=== PATIENT | female | born 1985 | race African-American/Black ===

== ENCOUNTER 2017-10-09 10:04 | Day surgery (SDC) | payer MEDICAID ==
[2017-10-09] MEDS ORDERED: LACTATED RINGERS 2,000 ML ONE (10:46)
--- NOTE | 2017-10-09 10:47 | Operative Report ---
Operative Report Operative Report: Pre-operative Diagnosis: 1. IUP at 23 weeks 4 days 2. short cervix 3. previous labor/delivery Post-operative Diagnosis: same Procedure Performed: Lopez cerclage Surgeon: Ariadna Acevedo MD Anesthesia: spinal Procedure Details: After placement of spinal anesthesia, the patient was draped and prepped in the usual sterile manner. Her legs were placed in stirrups. Her bladder was drained with a red rubber catheter. A weighted speculum was placed in the vagina and a right angle retractor placed anteriorly to visualize the cervix. Her cervix was grasped with ring forceps, and a circumferential suture was placed with 1- Prolene at the cervico-vaginal junction. The needle entry and exit points were at 12:00, 3:00, 6:00 and 9:00. The suture was then tied at the 12:00 position, and the ends cut long to aid in future identification and removal. Findings: cervix appeared short but closed. Estimated Blood Loss: minimal Complications: none Disposition: stable to PACU
--- NOTE | 2017-10-09 11:02 | Anesthesia Consultation ---
Anesthesia Consult and Med Hx Date of service: 10/09/17 - Airway Anesthetic Teeth Evaluation: Good ROM Head & Neck: Adequate Mental/Hyoid Distance: Adequate Mallampati Class: Class II Intubation Access Assessment: Probably Good - Pre-Operative Health Status ASA Pre-Surgery Classification: ASA2 Proposed Anesthetic Plan: Spinal - Pulmonary Hx Asthma: No - Central Nervous System Hx Seizures: No Hx Psychiatric Problems: No - Endocrine Hx Renal Disease: No Hx Hypothyroidism: No Hx Hyperthyroidism: No - Hematic Hx Anemia: No Hx Sickle Cell Disease: No - Other Systems Hx Alcohol Use: No
--- NOTE | 2017-10-09 11:04 | Anesthesia Day of Surgery ---
Anesthesia Day of Surgery - Day of Surgery Patient Examined: Yes Patient H&P Reviewed: Yes Patient is NPO: Yes
[2017-10-09] MEDS ORDERED: REGLAN IV NR (11:27)
[2017-10-09] MEDS ORDERED: PEPCID IV NR (11:30)
[2017-10-09 11:44] LABS: Hematocrit 38.5 % (30.3-42.9); Hemoglobin 12.8 gm/dl (10.1-14.3); Mean Corpuscular HGB Conc 33 % (30-34); Mean Corpuscular Hemoglobin 30 pg (28-32); Mean Corpuscular Volume 90 fl (79-97); Platelet Count 287 K/mm3 (140-440); Red Blood Count 4.31 M/mm3 (3.65-5.03); Red Cell Distribution Width 15.1 % (13.2-15.2)
[2017-10-09] MEDS ORDERED: ANCEF/STERILE WATER 2 GM/20 ML IV NR (12:00)
[2017-10-09] MEDS ORDERED: BICITRA PO NR (12:00)
[2017-10-09 16:11] VITALS: BP 97/54
[2017-10-10] MEDS ORDERED: Fluarix Quad 2017-2018(36 MOS+ IM ONE (12:00)
== END 2017-10-09 17:10 | disposition home or self-care (01) ==
LOC: LDOR 10:04 → LD 10:05 → LDOR 17:10
PROVIDERS: ATTEND Obstetrics & Gynecology Maternal & Fetal Medicine
DX: N88.8 Other specified noninflammatory disorders of cervix uteri (principal)
CPT/HCPCS: 36415; 58558; 85027; 86850; 86900; 86901; J2765; J7120; J0690

== ENCOUNTER 2018-01-10 15:04 | Inpatient (IN) | payer MEDICAID, OTHER ==
[2018-01-10] MEDS ORDERED: XYLOCAINE 2% INFILTRATI ONE ×3 (15:44→21:02)
[2018-01-10] MEDS ORDERED: ZOFRAN IV PRN (15:44)
[2018-01-10] MEDS ORDERED: ePHEDrine SULFATE IV PRN ×2 (15:44→21:31)
[2018-01-10] MEDS ORDERED: BRETHINE SUB-Q PRN (15:44)
[2018-01-10] MEDS ORDERED: LACTATED RINGERS 1,000 ML IV SCH (16:00)
[2018-01-10] MEDS ORDERED: BRETHINE IVP PRN (16:00)
[2018-01-10] MEDS ORDERED: PITOCin/NS 20 UNIT/1000ML DRIP 20 UNITS/1,000 ML BAG IV SCH (16:00)
[2018-01-10] MEDS ORDERED: CELESTONE SOLUSPAN IM SCH (16:00)
[2018-01-10 16:21] LABS: Hematocrit 43.9 % (30.3-42.9); Hemoglobin 14.5 gm/dl (10.1-14.3); Mean Corpuscular HGB Conc 33 % (30-34); Mean Corpuscular Hemoglobin 30 pg (28-32); Mean Corpuscular Volume 92 fl (79-97); Platelet Count 239 K/mm3 (140-440); Red Blood Count 4.78 M/mm3 (3.65-5.03); Red Cell Distribution Width 14.3 % (13.2-15.2)
[2018-01-10] MEDS: SUBLIMAZE IV PRN ×2 (17:07→19:33)
--- NOTE | 2018-01-10 17:25 | History and Physical Report ---
History of Present Illness Date of examination: 01/10/18 (pt sent from office 5cm after removal of cerclage ) Date of admission: 01/10/18 15:04 History of present illness: Pt seen in our office. Cerclage removed by . Pt noted to be 5,100,-1 with BBOW. Sent to L&D for expectant mgt of labor. @ 36.6 weeks EDC Confirmation: 02/01/2018 Gestational Age: 9 3/7 weeks Past History : 2 Premature Births: 1 Living Children: 0 Para: 1 # 1 Delivery date: 11/29/2016 Weeks Gestation: 24 labor: yes Delivery type: Delivery location: home Infant Sex: Female weight: less 1 lb Comments: PTL (prob not incompetent cx) del at 24 wk at and after 12d, weighed less than 1# Past Medical History: Negative Past Medical History born in [place], came to [facility] age 27 Past Surgical History: negative Past Medical History Anesthesia Complications: negative Anemia: negative Autoimmune Disorder: negative Bleeding Disorder: negative Blood Transfusions: negative Breast Disease: negative Diabetes: negative Heart Disease: negative Hypertension: negative Hepatitis/Liver Disease: negative Kidney Disease/UTI: negative Neurologic/Epilepsy/Migraines: negative Phlebitis/Varicosities: negative Psychiatric: negative Pulmonary Disease/Asthma: negative Thyroid Disease: negative Hospitalizations: negative Surgery (Non-inpatient auditor): negative Abnormal PAP: negative FABRICE Exposure: negative Infertility: negative Uterine Anomaly: negative Uterine Surgery (not C/S): negative Other Gynecologic Problems: positive, early 2nd tri delivery Infection History Hx of STD: none HIV Risk Eval: low risk Hepatitis B Risk Eval: low risk Personal hx. of genital herpes: no Partner hx. of genital herpes: no Rash, Viral, or Febrile illness since last LMP? no Varicella/Chicken Pox Status: Previous Disease TB Risk: no Genetic History Congenital Heart Defect: Mom: no Dad: no Kina Disease: Mom: no Dad: no Thalassemia Mom: no Dad: no Neural Tube Defect Mom: no Dad: no Down's Syndrome Mom: no Dad: no Aki-Sachs Mom: no Dad: no Sickle Cell Disease/Trait Mom: no Dad: no Hemophilia Mom: no Dad: no Muscular Dystrophy Mom: no Dad: no Cystic Fibrosis Mom: no Dad: no Hasty Chorea Mom: no Dad: no Mental Retardation Mom: no Dad: no Fragile X Mom: no Dad: no Other Genetic/Chromosomal Disorder Mom: no Dad: no Child w/other defect Mom: no Dad: no Past History - Obstetrical History Expected Date of Delivery: 02/01/18 Actual Gestation: 37 Week(s) 0 Day(s) : 2 Para: 1 (born @ 24w lived just a few days) Number of Pregnancies: 1 Number of Living Children: 0 Medications and Allergies Allergies Allergy/AdvReac Type Severity Reaction Status Date / Time No Known Allergies Allergy Unverified 10/09/17 10:50 Home Medications Medication Instructions Recorded Confirmed Last Taken Type Plus Tablet 1 tab PO QDAY 10/09/17 01/10/18 01/09/18 History 1 Ibuprofen 800 mg PO Q6HR #30 tablet 01/11/18 Unknown Rx Lidocain2.5%/Prilocai2.5% [Emla] 2 gm TP ONCE #1 tube 01/11/18 Unknown Rx Active Meds: Active Medications Ephedrine Sulfate (Ephedrine Sulfate) 10 mg IV Q2M PRN PRN Reason: Hypotension Fentanyl (Sublimaze) 100 mcg IV Q2H PRN PRN Reason: Labor Pain Last Admin: 01/10/18 17:07 Dose: 100 mcg Lactated Ringer's (Lactated Ringers) 1,000 mls @ 125 mls/hr IV DIRECT PAVAN Oxytocin/Sodium Chloride (Pitocin/Ns 20 Unit/1000ml Drip) 20 units in 1,000 mls @ 125 mls/hr IV DIRECT PAVAN Ondansetron HCl (Zofran) 4 mg IV Q8H PRN PRN Reason: Nausea And Vomiting Terbutaline Sulfate (Brethine) 0.25 mg SUB-Q ONCE PRN PRN Reason: Hyperstimulation/Hypertonicity Terbutaline Sulfate (Brethine) 0.25 mg IVP ONCE PRN PRN Reason: Hyperstimulation/Hypertonicity - Vital Signs Vital signs: Vital Signs Pulse BP 97 H 117/70 01/10/18 15:42 01/10/18 15:42 Temp Pulse Resp BP Pulse Ox 98.1 F 96 H 18 112/70 95 01/10/18 15:44 01/10/18 17:18 01/10/18 17:07 01/10/18 17:18 01/10/18 16:37 - Physical Exam Breasts: Positive: deferred Cardiovascular: Regular rate, Normal S1, Normal S2 Lungs: Positive: Clear to auscultation, Normal air movement Abdomen: Positive: normal appearance, soft, normal bowel sounds. Negative: distention, tenderness Genitourinary (Female): Positive: normal external genitalia, normal perenium Vulva: both: normal Vagina: Positive: normal moisture. Negative: discharge Cervix: Negative: lesion, discharge Uterus: Positive: normal size, normal contour Adnexa: both: normal Anus/Rectum: Positive: normal perianal skin, heme negative. Negative: rectal mass, hemorrhoids Extremities: Positive: edema Deep Tendon Reflex Grade: Normal +2 - Obstetrical FHR: category 1 Uterine Contraction Monitor Mode: External Cervical Dilatation: 5 (cerclage removed in office) Cervical Effacement Percentage: 100 (exam per ) station: -1 Uterine Contraction Pattern: Irregular Uterine Tone Measurement Phase: Resting Uterine Contraction Intensity: Mild Results Result Diagrams: 01/10/18 16:03 Abnormal lab results 01/10/18 Range/Units 16:03 Hgb 14.5 H (10.1-14.3) gm/dl Hct 43.9 H (30.3-42.9) % All other labs normal. Strep Gp B RAMILA Negative HBsAg Screen Negative Negative *1 RPR Non Reactive Non Reactive *2 Rubella Antibodies, IgG 12.60 index Immune >0.99 *3 Non-immune <0.90 Equivocal 0.90 - 0.99 Immune >0.99 ABO Grouping O *4 Rh Factor Positive *5 Please note: Prior records for this patient's ABO / Rh type are not available for additional verification. Antibody Screen Negative Negative *6 WBC [H] 12.2 x10E3/uL 3.4-10.8 *7 RBC 4.61 x10E6/uL 3.77-5.28 *8 Hemoglobin 13.5 g/dL 11.1-15.9 *9 Please note reference interval change Hematocrit 42.1 % 34.0-46.6 *10 MCV 91 fL 79-97 *11 MCH 29.3 pg 26.6-33.0 *12 MCHC 32.1 g/dL 31.5-35.7 *13 RDW 13.6 % 12.3-15.4 *14 Platelets 345 x10E3/uL 150-379 *15 Neutrophils 73 % Not Estab. *16 Lymphs 18 % Not Estab. *17 Monocytes 7 % Not Estab. *18 Eos 2 % Not Estab. *19 Basos 0 % Not Estab. *20 ! Immature Cells <No Reported Value> *21 Neutrophils (Absolute) [H] 8.9 x10E3/uL 1.4-7.0 *22 Lymphs (Absolute) 2.2 x10E3/uL 0.7-3.1 *23 Monocytes(Absolute) 0.8 x10E3/uL 0.1-0.9 *24 Eos (Absolute) 0.2 x10E3/uL 0.0-0.4 *25 Baso (Absolute) 0.0 x10E3/uL 0.0-0.2 *26 ! Immature Granulocytes 0 % Not Estab. *27 ! Immature Grans (Abs) 0.0 x10E3/uL 0.0-0.1 *28 ! NRBC <No Reported Value> *29 Hematology Comments: <No Reported Value> *30 Tests: (2) HB Solu + Rflx Frac (039318) Hemoglobin (Hgb) Solubility Negative Negative *31 Tests: (3) Panel 452359 ([id number]) HIV Screen 4th Generation wRfx Non Reactive Non Reactive *32 Tests: (4) HCV Ab w/Rflx to Verification (528351) ! HCV Ab <0.1 s/co ratio 0.0-0.9 *33 Tests: (5) Comment: ([id number]) ! Comment: SPRCS *34 Non reactive HCV antibody screen is consistent with no HCV infection, unless recent infection is suspected or other evidence exists to indicate HCV infection. Tests: (6) Urine Culture, Routine ([id number]) Urine Culture, Routine Final report *35 Tests: (7) Result ([id number]) ! Result 1 No growth Assessment and Plan - Patient Problems (1) 36 to 37 weeks gestation of Onset Date: ~01/10/18 Current Visit: Yes Status: Acute Plan to address problem: Pt advanced dilated with 100% effacement BBOW in office after removal of cerclage. Will monitor for labor. GBS negative.Orders in EMR. aware. (2) Insulin controlled gestational diabetes mellitus (GDM) in third trimester Onset Date: 01/10/18 Current Visit: Yes Status: Acute Plan to address problem: Pt GDM poorly controlled on Insulin. Will monitor BS Q 6hr Will initiate SS if indicated. Dr.Meziere sanchez.
--- NOTE | 2018-01-10 20:54 | Progress Note ---
Assessment and Plan - Patient Problems (1) 36 to 37 weeks gestation of Onset Date: ~01/10/18 Current Visit: Yes Status: Acute (2) Active labor Current Visit: Yes Status: Acute Qualifiers: Fetus number: single or unspecified fetus Qualified Code(s): O60.10X0 - labor with delivery, unspecified trimester, not applicable or unspecified Plan to address problem: -anticipate -bolus for epidural going (3) Insulin controlled gestational diabetes mellitus (GDM) in third trimester Onset Date: 01/10/18 Current Visit: Yes Status: Acute (4) Short cervical length during in second trimester Current Visit: No Status: Acute Subjective - Subjective Date of service: 01/10/18 Principal diagnosis: 36 6/7 wls with PTL s/p cerclage removal today Interval history: c/o having pain. Now desires epidural placement. Will start bolus at this time.She did get IV pain meds about an hour ago. Will AROM and start pitocin after epidural placement as pt labor is progressing. Patient reports: new complaints, movement normal, contractions, no loss of fluid Objective - Vital Signs Vital Signs: Vital Signs - 12hr 01/10/18 01/10/18 01/10/18 15:42 15:44 15:47 Temperature 98.1 F Pulse Rate 97 H 89 96 H Respiratory 14 Rate Blood Pressure 117/70 Blood Pressure 117/70 [Right] O2 Sat by Pulse 97 97 Oximetry 01/10/18 01/10/18 01/10/18 15:52 15:57 16:02 Temperature Pulse Rate 90 97 H 98 H Respiratory Rate Blood Pressure Blood Pressure [Right] O2 Sat by Pulse 96 95 96 Oximetry 01/10/18 01/10/18 01/10/18 16:07 16:10 16:12 Temperature Pulse Rate 97 H 93 H 98 H Respiratory Rate Blood Pressure Blood Pressure [Right] O2 Sat by Pulse 97 91 95 Oximetry 01/10/18 01/10/18 01/10/18 16:17 16:22 16:27 Temperature Pulse Rate 99 H 100 H 106 H Respiratory Rate Blood Pressure Blood Pressure [Right] O2 Sat by Pulse 96 95 96 Oximetry 01/10/18 01/10/18 01/10/18 16:32 16:33 16:37 Temperature Pulse Rate 91 H 99 H 87 Respiratory Rate Blood Pressure Blood Pressure [Right] O2 Sat by Pulse 95 94 95 Oximetry 01/10/18 01/10/18 01/10/18 17:07 17:18 17:37 Temperature Pulse Rate 96 H Respiratory 18 14 Rate Blood Pressure 112/70 Blood Pressure [Right] O2 Sat by Pulse Oximetry 01/10/18 01/10/18 01/10/18 17:48 18:18 18:30 Temperature Pulse Rate 96 H 93 H 96 H Respiratory Rate Blood Pressure 111/65 115/69 Blood Pressure [Right] O2 Sat by Pulse 93 Oximetry 01/10/18 01/10/18 01/10/18 18:35 18:40 18:41 Temperature Pulse Rate 103 H 101 H 98 H Respiratory Rate Blood Pressure Blood Pressure [Right] O2 Sat by Pulse 95 94 94 Oximetry 01/10/18 01/10/18 01/10/18 18:45 18:46 18:48 Temperature Pulse Rate 102 H 100 H 88 Respiratory Rate Blood Pressure 112/71 Blood Pressure [Right] O2 Sat by Pulse 95 94 Oximetry 01/10/18 01/10/18 01/10/18 18:50 18:52 18:55 Temperature Pulse Rate 98 H 93 H 91 H Respiratory Rate Blood Pressure Blood Pressure [Right] O2 Sat by Pulse 96 94 95 Oximetry 01/10/18 01/10/18 01/10/18 19:00 19:01 19:05 Temperature Pulse Rate 100 H 95 H 95 H Respiratory Rate Blood Pressure Blood Pressure [Right] O2 Sat by Pulse 95 94 96 Oximetry 01/10/18 01/10/18 01/10/18 19:10 19:15 19:18 Temperature Pulse Rate 98 H 92 H 95 H Respiratory Rate Blood Pressure 117/72 Blood Pressure [Right] O2 Sat by Pulse 95 96 Oximetry 01/10/18 01/10/18 01/10/18 19:20 19:25 19:30 Temperature 98.2 F Pulse Rate 98 H 93 H 93 H Respiratory 18 Rate Blood Pressure Blood Pressure 117/72 [Right] O2 Sat by Pulse 96 97 95 Oximetry 01/10/18 01/10/18 01/10/18 19:33 19:35 19:37 Temperature Pulse Rate 96 H 96 H Respiratory 18 Rate Blood Pressure Blood Pressure [Right] O2 Sat by Pulse 96 94 Oximetry 01/10/18 01/10/18 01/10/18 19:40 19:45 19:46 Temperature Pulse Rate 96 H 95 H 99 H Respiratory Rate Blood Pressure Blood Pressure [Right] O2 Sat by Pulse 92 94 94 Oximetry 01/10/18 01/10/18 01/10/18 19:48 19:50 19:52 Temperature Pulse Rate 95 H 100 H 96 H Respiratory Rate Blood Pressure 118/71 Blood Pressure [Right] O2 Sat by Pulse 95 94 Oximetry 01/10/18 01/10/18 01/10/18 19:55 19:58 20:00 Temperature Pulse Rate 100 H 93 H 98 H Respiratory Rate Blood Pressure Blood Pressure [Right] O2 Sat by Pulse 94 94 95 Oximetry 01/10/18 01/10/18 01/10/18 20:05 20:10 20:15 Temperature Pulse Rate 93 H 88 91 H Respiratory Rate Blood Pressure Blood Pressure [Right] O2 Sat by Pulse 96 95 95 Oximetry 01/10/18 01/10/18 01/10/18 20:18 20:20 20:22 Temperature Pulse Rate 87 92 H 95 H Respiratory Rate Blood Pressure 121/71 Blood Pressure [Right] O2 Sat by Pulse 96 93 Oximetry 01/10/18 01/10/18 01/10/18 20:25 20:30 20:35 Temperature Pulse Rate 98 H 97 H 94 H Respiratory Rate Blood Pressure Blood Pressure [Right] O2 Sat by Pulse 94 97 97 Oximetry 01/10/18 01/10/18 01/10/18 20:40 20:45 20:48 Temperature Pulse Rate 93 H 92 H 96 H Respiratory Rate Blood Pressure 107/56 Blood Pressure [Right] O2 Sat by Pulse 96 96 Oximetry 01/10/18 20:50 Temperature Pulse Rate 95 H Respiratory Rate Blood Pressure Blood Pressure [Right] O2 Sat by Pulse 96 Oximetry - Exam FHR: category 1 Cervical Dilatation: 8.0 (bloody show seen; BBOW palpated) Cervical Effacement Percentage: 100 station: 0 Uterine Contraction Pattern: Regular Uterine Tone Measurement Phase: Resting Uterine Contraction Intensity: Moderate - Labs Labs: Abnormal Labs 01/10/18 16:03 Hgb 14.5 H Hct 43.9 H Laboratory Results - last 24 hr 01/10/18 01/10/18 16:03 16:03 WBC 8.1 RBC 4.78 Hgb 14.5 H Hct 43.9 H MCV 92 MCH 30 MCHC 33 RDW 14.3 Plt Count 239 Blood Type O POSITIVE Antibody Screen Negative
[2018-01-10] MEDS ORDERED: NARCAN 2 MG/2 ML IV PRN (21:31)
[2018-01-10] MEDS ORDERED: fentaNYL-BUPIV 2 MCG/ML-0.125% 200 MCG/100 ML BAG EPIDURAL SCH (22:00)
--- NOTE | 2018-01-10 22:27 | Progress Note ---
Assessment and Plan - Patient Problems (1) 36 to 37 weeks gestation of Onset Date: ~01/10/18 Current Visit: Yes Status: Acute (2) Active labor Current Visit: Yes Status: Acute Qualifiers: Fetus number: single or unspecified fetus Qualified Code(s): O60.10X0 - labor with delivery, unspecified trimester, not applicable or unspecified Plan to address problem: -s/p AROM with placement of internal monitors -start pitocin at this time -anticipate (3) Insulin controlled gestational diabetes mellitus (GDM) in third trimester Onset Date: 01/10/18 Current Visit: Yes Status: Acute (4) Short cervical length during in second trimester Current Visit: No Status: Acute Subjective - Subjective Principal diagnosis: 36 6/7 wls with PTL s/p cerclage removal today Interval history: AROM done with clear fluid noted. IUPC placed w/o difficulty. Pt cx is unchanged she in comfortable with epidural in place. Will start pitocin at this time. Patient reports: new complaints, movement normal, contractions, no loss of fluid Objective - Vital Signs Vital Signs: Vital Signs - 12hr 01/10/18 01/10/18 01/10/18 15:42 15:44 15:47 Temperature 98.1 F Pulse Rate 97 H 89 96 H Respiratory 14 Rate Blood Pressure 117/70 Blood Pressure 117/70 [Right] O2 Sat by Pulse 97 97 Oximetry 01/10/18 01/10/18 01/10/18 15:52 15:57 16:02 Temperature Pulse Rate 90 97 H 98 H Respiratory Rate Blood Pressure Blood Pressure [Right] O2 Sat by Pulse 96 95 96 Oximetry 01/10/18 01/10/18 01/10/18 16:07 16:10 16:12 Temperature Pulse Rate 97 H 93 H 98 H Respiratory Rate Blood Pressure Blood Pressure [Right] O2 Sat by Pulse 97 91 95 Oximetry 01/10/18 01/10/18 01/10/18 16:17 16:22 16:27 Temperature Pulse Rate 99 H 100 H 106 H Respiratory Rate Blood Pressure Blood Pressure [Right] O2 Sat by Pulse 96 95 96 Oximetry 01/10/18 01/10/18 01/10/18 16:32 16:33 16:37 Temperature Pulse Rate 91 H 99 H 87 Respiratory Rate Blood Pressure Blood Pressure [Right] O2 Sat by Pulse 95 94 95 Oximetry 01/10/18 01/10/18 01/10/18 17:07 17:18 17:37 Temperature Pulse Rate 96 H Respiratory 18 14 Rate Blood Pressure 112/70 Blood Pressure [Right] O2 Sat by Pulse Oximetry 01/10/18 01/10/18 01/10/18 17:48 18:18 18:30 Temperature Pulse Rate 96 H 93 H 96 H Respiratory Rate Blood Pressure 111/65 115/69 Blood Pressure [Right] O2 Sat by Pulse 93 Oximetry 01/10/18 01/10/18 01/10/18 18:35 18:40 18:41 Temperature Pulse Rate 103 H 101 H 98 H Respiratory Rate Blood Pressure Blood Pressure [Right] O2 Sat by Pulse 95 94 94 Oximetry 01/10/18 01/10/18 01/10/18 18:45 18:46 18:48 Temperature Pulse Rate 102 H 100 H 88 Respiratory Rate Blood Pressure 112/71 Blood Pressure [Right] O2 Sat by Pulse 95 94 Oximetry 01/10/18 01/10/18 01/10/18 18:50 18:52 18:55 Temperature Pulse Rate 98 H 93 H 91 H Respiratory Rate Blood Pressure Blood Pressure [Right] O2 Sat by Pulse 96 94 95 Oximetry 01/10/18 01/10/18 01/10/18 19:00 19:01 19:05 Temperature Pulse Rate 100 H 95 H 95 H Respiratory Rate Blood Pressure Blood Pressure [Right] O2 Sat by Pulse 95 94 96 Oximetry 01/10/18 01/10/18 01/10/18 19:10 19:15 19:18 Temperature Pulse Rate 98 H 92 H 95 H Respiratory Rate Blood Pressure 117/72 Blood Pressure [Right] O2 Sat by Pulse 95 96 Oximetry 01/10/18 01/10/18 01/10/18 19:20 19:25 19:30 Temperature 98.2 F Pulse Rate 98 H 93 H 93 H Respiratory 18 Rate Blood Pressure Blood Pressure 117/72 [Right] O2 Sat by Pulse 96 97 95 Oximetry 01/10/18 01/10/18 01/10/18 19:33 19:35 19:37 Temperature Pulse Rate 96 H 96 H Respiratory 18 Rate Blood Pressure Blood Pressure [Right] O2 Sat by Pulse 96 94 Oximetry 01/10/18 01/10/18 01/10/18 19:40 19:45 19:46 Temperature Pulse Rate 96 H 95 H 99 H Respiratory Rate Blood Pressure Blood Pressure [Right] O2 Sat by Pulse 92 94 94 Oximetry 01/10/18 01/10/18 01/10/18 19:48 19:50 19:52 Temperature Pulse Rate 95 H 100 H 96 H Respiratory Rate Blood Pressure 118/71 Blood Pressure [Right] O2 Sat by Pulse 95 94 Oximetry 01/10/18 01/10/18 01/10/18 19:55 19:58 20:00 Temperature Pulse Rate 100 H 93 H 98 H Respiratory Rate Blood Pressure Blood Pressure [Right] O2 Sat by Pulse 94 94 95 Oximetry 01/10/18 01/10/18 01/10/18 20:05 20:10 20:15 Temperature Pulse Rate 93 H 88 91 H Respiratory Rate Blood Pressure Blood Pressure [Right] O2 Sat by Pulse 96 95 95 Oximetry 01/10/18 01/10/18 01/10/18 20:18 20:20 20:22 Temperature Pulse Rate 87 92 H 95 H Respiratory Rate Blood Pressure 121/71 Blood Pressure [Right] O2 Sat by Pulse 96 93 Oximetry 01/10/18 01/10/18 01/10/18 20:25 20:30 20:35 Temperature Pulse Rate 98 H 97 H 94 H Respiratory Rate Blood Pressure Blood Pressure [Right] O2 Sat by Pulse 94 97 97 Oximetry 01/10/18 01/10/18 01/10/18 20:40 20:45 20:48 Temperature Pulse Rate 93 H 92 H 96 H Respiratory Rate Blood Pressure 107/56 Blood Pressure [Right] O2 Sat by Pulse 96 96 Oximetry 01/10/18 01/10/18 01/10/18 20:50 20:55 20:58 Temperature Pulse Rate 95 H 94 H 48 L Respiratory Rate Blood Pressure Blood Pressure [Right] O2 Sat by Pulse 96 96 79 L Oximetry 01/10/18 01/10/18 01/10/18 21:00 21:05 21:10 Temperature Pulse Rate 92 H 97 H 88 Respiratory Rate Blood Pressure Blood Pressure [Right] O2 Sat by Pulse 83 L 91 92 Oximetry 01/10/18 01/10/18 01/10/18 21:14 21:15 21:16 Temperature Pulse Rate 74 97 H 99 H Respiratory Rate Blood Pressure 123/74 Blood Pressure [Right] O2 Sat by Pulse 93 97 Oximetry 01/10/18 01/10/18 01/10/18 21:18 21:20 21:22 Temperature Pulse Rate 96 H 103 H 100 H Respiratory Rate Blood Pressure 127/73 123/67 134/67 Blood Pressure [Right] O2 Sat by Pulse 87 Oximetry 01/10/18 01/10/18 01/10/18 21:24 21:25 21:26 Temperature Pulse Rate 111 H 112 H 111 H Respiratory Rate Blood Pressure 132/69 131/66 Blood Pressure [Right] O2 Sat by Pulse 86 Oximetry 01/10/18 01/10/18 01/10/18 21:28 21:30 21:32 Temperature Pulse Rate 118 H 106 H 122 H Respiratory Rate Blood Pressure 122/65 124/68 107/65 Blood Pressure [Right] O2 Sat by Pulse 87 Oximetry 01/10/18 01/10/18 01/10/18 21:34 21:36 21:38 Temperature Pulse Rate 115 H 121 H 115 H Respiratory Rate Blood Pressure 112/64 109/57 101/55 Blood Pressure [Right] O2 Sat by Pulse Oximetry 01/10/18 01/10/18 01/10/18 21:39 21:40 21:42 Temperature Pulse Rate 96 H 97 H 115 H Respiratory Rate Blood Pressure 121/59 112/56 Blood Pressure [Right] O2 Sat by Pulse 81 L 83 L Oximetry 01/10/18 01/10/18 01/10/18 21:44 21:45 21:46 Temperature Pulse Rate 102 H 95 H 105 H Respiratory Rate Blood Pressure 119/58 116/58 Blood Pressure [Right] O2 Sat by Pulse 83 L 81 L Oximetry 01/10/18 01/10/18 01/10/18 21:48 21:50 21:51 Temperature Pulse Rate 99 H 100 H Respiratory Rate Blood Pressure 119/60 113/60 Blood Pressure [Right] O2 Sat by Pulse 88 83 L Oximetry 01/10/18 01/10/18 01/10/18 21:52 21:54 21:55 Temperature Pulse Rate 103 H 96 H 93 H Respiratory Rate Blood Pressure 117/59 121/62 Blood Pressure [Right] O2 Sat by Pulse 88 Oximetry 01/10/18 01/10/18 01/10/18 21:56 21:58 22:00 Temperature Pulse Rate 109 H 115 H 93 H Respiratory Rate Blood Pressure 115/58 114/61 116/67 Blood Pressure [Right] O2 Sat by Pulse 87 Oximetry 01/10/18 01/10/18 01/10/18 22:02 22:04 22:06 Temperature Pulse Rate 93 H 114 H 100 H Respiratory Rate Blood Pressure 118/65 108/60 115/64 Blood Pressure [Right] O2 Sat by Pulse 82 L 89 Oximetry 01/10/18 01/10/18 01/10/18 22:08 22:10 22:11 Temperature Pulse Rate 103 H 109 H 95 H Respiratory Rate Blood Pressure 112/63 110/61 Blood Pressure [Right] O2 Sat by Pulse 97 Oximetry 01/10/18 01/10/18 01/10/18 22:12 22:14 22:16 Temperature Pulse Rate 101 H 106 H 88 Respiratory Rate Blood Pressure 112/64 112/62 114/64 Blood Pressure [Right] O2 Sat by Pulse 97 Oximetry 01/10/18 01/10/18 01/10/18 22:18 22:20 22:21 Temperature Pulse Rate 100 H 88 94 H Respiratory Rate Blood Pressure 114/63 115/63 Blood Pressure [Right] O2 Sat by Pulse 97 Oximetry 01/10/18 01/10/18 01/10/18 22:22 22:24 22:26 Temperature Pulse Rate 102 H 108 H 101 H Respiratory Rate Blood Pressure 114/66 132/85 117/68 Blood Pressure [Right] O2 Sat by Pulse 97 Oximetry - Exam Cervical Dilatation: 8 Cervical Effacement Percentage: 100 station: 0 Uterine Contraction Pattern: Regular Uterine Tone Measurement Phase: Resting Uterine Contraction Intensity: Mild Extremities: normal - Labs Labs: Abnormal Labs 01/10/18 16:03 Hgb 14.5 H Hct 43.9 H Laboratory Results - last 24 hr 01/10/18 01/10/18 16:03 16:03 WBC 8.1 RBC 4.78 Hgb 14.5 H Hct 43.9 H MCV 92 MCH 30 MCHC 33 RDW 14.3 Plt Count 239 Blood Type O POSITIVE Antibody Screen Negative
[2018-01-10] MEDS ORDERED: PITOCin/NS 30 UNIT/500ML 30,000 MILLIUNITS/500 ML BAG IV ONE (22:30)
[2018-01-10] MEDS ORDERED: MINERAL OIL ONE ×3 (23:16→23:53)
[2018-01-11] MEDS ORDERED: METHERGINE IM ONE ×2 (00:51→00:52)
--- NOTE | 2018-01-11 01:07 | Procedure Note ---
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 placed on maternal abdomen. There was no dystocia. MLE was cut prior to delivery. After delivery a partial third degree extension was noted. Repair done in usual fashion with above stated suctures. EBL 400ml. Pt tolerated procedure well. Mother and infant stable in LDR. - Infant A at 1 minute: 8 at 5 minutes: 9 Gender: Male (6lbs 12oz)
[2018-01-11] MEDS ORDERED: BENADRYL PO PRN (01:09)
[2018-01-11] MEDS ORDERED: PHENERGAN PO PRN (01:09)
[2018-01-11] MEDS ORDERED: DULCOLAX PR PRN (01:09)
[2018-01-11] MEDS ORDERED: PHENERGAN PR PRN (01:09)
[2018-01-11] MEDS ORDERED: MILK OF MAGNESIA PO PRN (01:09)
[2018-01-11] MEDS ORDERED: LANSINOH TP PRN (01:09)
[2018-01-11] MEDS ORDERED: TYLENOL PO PRN (01:09)
[2018-01-11] MEDS ORDERED: SODIUM CHLORIDE FLUSH SYRINGE 10 ML IV NR (02:00)
[2018-01-11] MEDS ORDERED: FLEET MINERAL OIL PR ONE (02:01)
[2018-01-11] MEDS: NORCO 5/325 PO PRN ×2 (03:14→10:43)
[2018-01-11] MEDS: TUCKS PAD TP PRN (03:14)
[2018-01-11] MEDS: METHERGINE PO SCH ×2 (06:15→14:15)
[2018-01-11] MEDS: MOTRIN PO SCH ×3 (06:15→21:59)
[2018-01-11] MEDS ORDERED: D50W (25GM) Syringe IV PRN (08:00)
[2018-01-11] MEDS: HumuLIN R SUB-Q SCH ×3 (08:22→17:19)
[2018-01-11 13:09] LABS: Hematocrit 40.2 % (30.3-42.9); Hemoglobin 13.3 gm/dl (10.1-14.3)
[2018-01-12] MEDS ORDERED: BOOSTRIX IM ONE (06:00)
[2018-01-12] MEDS: METHERGINE PO SCH ×2 (07:50→14:30)
[2018-01-12] MEDS: HumuLIN R SUB-Q SCH ×4 (07:51→22:34)
[2018-01-12] MEDS: MOTRIN PO SCH ×4 (07:53→18:25)
--- NOTE | 2018-01-12 09:54 | Discharge Summary ---
Providers - Providers Date of Admission: 01/10/18 15:04 Date of discharge: 01/12/18 (desires d/c home today) Attending physician: SALOMON ROSS Primary care physician: SALOMON ROSS Hospitalization Reason for admission: labor Condition: Good Pertinent studies: Post delivery H&H 13.3/40.2 Procedures: Vaginal delivery Hospital course: uncomplicated vaginal delivery and course Disposition: DC-01 TO HOME OR SELFCARE - Discharge Diagnoses (1) (spontaneous vaginal delivery) Status: Acute Core Measure Documentation - Palliative Care Palliative Care/ Comfort Measures: Not Applicable - Core Measures Any of the following diagnoses?: none Exam - Constitutional Vitals: Temp Pulse Resp BP Pulse Ox 98.5 F 79 19 93/54 96 01/12/18 05:55 01/12/18 05:55 01/12/18 05:55 01/12/18 05:55 01/12/18 05:55 General appearance: Present: no acute distress, well-nourished - EENT Eyes: Present: PERRL ENT: hearing intact, clear oral mucosa - Neck Neck: Present: supple, normal ROM - Respiratory Respiratory effort: normal Respiratory: bilateral: CTA - Cardiovascular Heart Sounds: Present: S1 & S2. Absent: rub, click - Extremities Extremities: pulses symmetrical, No edema Peripheral Pulses: within normal limits - Abdominal General gastrointestinal: Present: soft, non-tender, non-distended, normal bowel sounds Female genitourinary: Present: normal - Integumentary Integumentary: Present: clear, warm, dry - Musculoskeletal Musculoskeletal: gait normal, strength equal bilaterally - Psychiatric Psychiatric: appropriate mood/affect, intact judgment & insight - Neurologic Neurologic: CNII-XII intact, moves all extremities - Additional findings Additional findings: Lochia scant, fundus firm, VSSAF, Bottle feeding Plan Activity: no restrictions Diet: regular Follow up with: SALOMON ROSS MD [Primary Care Provider] - 7 Days (Congratulations! Please call [phone] to schedule your son's circumcision in 1 week and your visit and 2 hour diabetes test in 6 weeks. Bring EMLA cream to your son's appointment and await further instructions. Please call for any questions or concerns.) Prescriptions: Ibuprofen 800 mg PO Q6HR #30 tablet Lidocain2.5%/Prilocai2.5% [Emla] 2 gm TP ONCE #1 tube
[2018-01-12] MEDS: TUCKS PAD TP PRN (18:59)
[2018-01-13] MEDS: MOTRIN PO SCH ×3 (04:28→18:15)
[2018-01-13] MEDS: NORCO 5/325 PO PRN (04:29)
[2018-01-13] MEDS: HumuLIN R SUB-Q SCH ×2 (12:30→16:56)
[2018-01-13] MEDS: METHERGINE PO SCH (14:00)
[2018-01-13 18:19] VITALS: BP 114/66
== END 2018-01-13 18:47 | disposition home or self-care (01) | DRG 775 ==
LOC: LD 15:04 → APU 01-11 02:45 → OB 01-11 02:50
PROVIDERS: ADMIT Obstetrics & Gynecology; ATTEND Obstetrics & Gynecology
PROC: 10E0XZZ Delivery of Products of Conception, External Approach (ICD-10-PCS; principal; 2018-01-11)
PROC: 0DQR0ZZ Repair Anal Sphincter, Open Approach (ICD-10-PCS; 2018-01-11)
PROC: 0W8NXZZ Division of Female Perineum, External Approach (ICD-10-PCS; 2018-01-11)
DX: O24.429 Gestational diabetes mellitus in childbirth, unspecified control (principal); O60.14X0 Preterm labor third trimester with preterm delivery third trimester, not applicable or unspecified; O26.873 Cervical shortening, third trimester; Z3A.36 36 weeks gestation of pregnancy; Z37.0 Single live birth
CPT/HCPCS: 36415; 82962; 85014; 85018; 85027; 86592; 86850; 86900; 86901; 88307; J1815; J2210; J2590; J3010; J7120